=== PATIENT | male | born 1945 | race Caucasian/White ===

== ENCOUNTER → 2019-05-11 | Outpatient (CLI) | payer OTHER ==
[~2019-05-11] MED LIST: AMLO5TAB4 PO; ASPI-496; CARV25TA12 PO; CARV3.1212; CHLO25TA PO; CLON0.1T22 PO; FLUT1DIS INH; HYDR-3343 PO; LOSA100T14 PO; OMEP-110 PO; OMEP1CAP4 PO; OXYC-302 PO; POTA20TA14 PO; SIMV40TA20 PO
== END | disposition home or self-care (01) ==
LOC: CVU 15:24
PROVIDERS: ATTEND Orthopaedic Surgery
DX: I08.0 Rheumatic disorders of both mitral and aortic valves (principal); I25.10 Atherosclerotic heart disease of native coronary artery without angina pectoris; I71.9 Aortic aneurysm of unspecified site, without rupture; I71.4 Abdominal aortic aneurysm, without rupture; I10 Essential (primary) hypertension; E78.5 Hyperlipidemia, unspecified; J84.10 Pulmonary fibrosis, unspecified
CPT/HCPCS: 93306

== ENCOUNTER → 2020-06-18 | Outpatient (CLI) | payer MEDICARE, OTHER ==
[~2020-06-18] MED LIST changes: -OXYC-302 PO; +OXYC1TAB14 PO
== END | disposition home or self-care (01) ==
LOC: CVU 12:44
PROVIDERS: ATTEND Internal Medicine Cardiovascular Disease
DX: I08.0 Rheumatic disorders of both mitral and aortic valves (principal); I25.10 Atherosclerotic heart disease of native coronary artery without angina pectoris; I71.2 Thoracic aortic aneurysm, without rupture
CPT/HCPCS: 93306